=== PATIENT | female | born 1990 | race American Indian/Alaskan Native ===

== ENCOUNTER 2019-12-03 18:04 | Emergency (ER) | payer MEDICAID ==
[2019-12-03] MEDS ORDERED: cefTRIAXone/NS 1 GM/50 ML 1 GM/50 ML BAG IV ONE (21:09)
[2019-12-03] MEDS ORDERED: SULFAMETHOXAZOLE/TRIMETHOPRIM 800/160MG DS TAB PO ONE (21:09)
[2019-12-03] MEDS ORDERED: CLINDAMYCIN 300 MG CAP PO ONE (21:09)
[2019-12-03] MEDS ORDERED: LIDOCAINE-MPF (1%) 10 MG/1 ML VIAL 5 ML INFILTRATI ONE ×2 (21:10→21:12)
[2019-12-03] MEDS ORDERED: ONDANSETRON 4 MG ODT TAB PO ONE ×2 (21:11→21:59)
[2019-12-03] MEDS ORDERED: ACETAMINOPHEN 500 MG TAB PO ONE (21:11)
[2019-12-03 21:31] LABS: HCG Qualitative,Urine Negative (Negative)
[2019-12-03 21:32] LABS: Bacteria,Urine 1+ /HPF (Negative); Bilirubin,Urine NEG (Negative); Blood,Urine LG (Negative); Color,Urine Yellow (Yellow); Mucus,Urine FEW /HPF; Protein,Urine <15 mg/dL mg/dL (Negative); Urobilinogen,Urine < 2.0 mg/dL (<2.0)
[2019-12-03] MEDS ORDERED: metroNIDAZOLE 500 MG TAB PO ONE (21:59)
[2019-12-03 22:17] VITALS: BP 123/82
--- NOTE | 2019-12-03 22:24 | Emergency Department Report ---
ED General Adult HPI - General Chief complaint: Urogenital-Female Stated complaint: LOWER BACK PAIN/DISCHARGE/BOIL Source: patient Mode of arrival: Ambulatory Limitations: No Limitations - History of Present Illness Initial comments: Patient is a A0 29-year-old -[place] female with no past medical history who presents to the ED with complaint of acute onset persistent thick yellowish-green malodorous vaginal discharge, dysuria, urinary frequency and urgency, and painful swollen erythematous maculopapular rash on right gluteal cleft for 2 weeks. Patient states that the painful rash has worsened in the last 2 days. Patient denies fever, chills, nausea, vomiting, dizziness, syncope, chest pain, shortness of breath, cough, abdominal pain, diarrhea, vaginal bleeding or low back pain. MD Complaint: Vaginal discharge; Painful swollen right gluteal cleft rash; dysuria -: Sudden, week(s) (2) Location: genitals, buttocks (right) Radiation: non-radiation Severity scale (0 -10): 7 Quality: aching, sharp Consistency: constant Improves with: none Worsens with: movement Associated Symptoms: denies other symptoms, rash (Swollen erythematous maculopapular rash on the right gluteal cleft). denies: confusion, chest pain, cough, diaphoresis, fever/chills, headaches, malaise, nausea/vomiting, seizure, shortness of breath, syncope, weakness, other - Related Data Previous Rx's Medication Instructions Recorded Last Taken Type Doxycycline Hyclate 100 mg PO Q12H #20 tablet. 12/03/19 Unknown Rx Fluconazole (Nf) [Diflucan TAB] 150 mg PO ONCE #1 tablet 12/03/19 Unknown Rx Ibuprofen [Motrin] 800 mg PO Q8HR PRN #30 tablet 12/03/19 Unknown Rx Ondansetron [Zofran Odt] 4 mg PO Q6HR PRN #15 tab.rapdis 12/03/19 Unknown Rx Sulfamethoxazole/Trimethoprim 1 each PO Q12H #20 tablet 12/03/19 Unknown Rx [Bactrim DS TAB] metroNIDAZOLE [Flagyl] 500 mg PO Q12HR #14 tab 12/03/19 Unknown Rx Allergies Allergy/AdvReac Type Severity Reaction Status Date / Time No Known Allergies Allergy Unverified 12/03/19 18:25 ED Review of Systems ROS: Stated complaint: LOWER BACK PAIN/DISCHARGE/BOIL Other details as noted in HPI Constitutional: denies: chills, fever Eyes: denies: eye pain, eye discharge, vision change ENT: denies: ear pain, throat pain Respiratory: denies: cough, shortness of breath, wheezing Cardiovascular: denies: chest pain, palpitations Endocrine: no symptoms reported Gastrointestinal: denies: abdominal pain, nausea, diarrhea Genitourinary: urgency, dysuria, frequency, discharge Musculoskeletal: denies: back pain, joint swelling Skin: rash (Swollen erythematous maculopapular rash on right gluteal cleft with pain), change in color. denies: lesions Neurological: denies: headache, weakness, paresthesias Psychiatric: denies: anxiety, depression Hematological/Lymphatic: denies: easy bleeding, easy bruising ED Past Medical Hx - Past Medical History Previous Medical History?: No - Surgical History Past Surgical History?: No - Social History Smoking Status: Current Every Day Smoker Substance Use Type: Alcohol, Marijuana - Medications Home Medications: Home Medications Medication Instructions Recorded Confirmed Last Taken Type Doxycycline Hyclate 100 mg PO Q12H #20 tablet.dr 12/03/19 Unknown Rx Fluconazole (Nf) [Diflucan TAB] 150 mg PO ONCE #1 tablet 12/03/19 Unknown Rx Ibuprofen [Motrin] 800 mg PO Q8HR PRN #30 tablet 12/03/19 Unknown Rx Ondansetron [Zofran Odt] 4 mg PO Q6HR PRN #15 tab.rapdis 12/03/19 Unknown Rx Sulfamethoxazole/Trimethoprim 1 each PO Q12H #20 tablet 12/03/19 Unknown Rx [Bactrim DS TAB] metroNIDAZOLE [Flagyl] 500 mg PO Q12HR #14 tab 12/03/19 Unknown Rx ED Physical Exam - General Limitations: No Limitations General appearance: alert, in no apparent distress - Head Head exam: Present: atraumatic, normocephalic, normal inspection - Eye Eye exam: Present: normal appearance, PERRL, EOMI Pupils: Present: normal accommodation - ENT ENT exam: Present: normal exam, normal orophraynx, mucous membranes moist, TM's normal bilaterally, normal external ear exam - Neck Neck exam: Present: normal inspection, full ROM - Respiratory Respiratory exam: Present: normal lung sounds bilaterally. Absent: respiratory distress, wheezes, rales, rhonchi, chest wall tenderness, accessory muscle use, decreased breath sounds - Cardiovascular Cardiovascular Exam: Present: regular rate, normal rhythm, normal heart sounds. Absent: systolic murmur, diastolic murmur, rubs, gallop - GI/Abdominal GI/Abdominal exam: Present: soft, normal bowel sounds. Absent: tenderness, guarding, hyperactive bowel sounds - External exam: Present: normal external exam Speculum exam: Present: vaginal discharge (Greenish-yellow malodorous discharge), cervical discharge (Greenish-yellow malodorous discharge) Bi-manual exam: Present: normal bi-manual exam, other (Female RN press reader Ms. Rousseau present during the pelvic exam) - Extremities Exam Extremities exam: Present: normal inspection, full ROM, normal capillary refill - Back Exam Back exam: Present: normal inspection, full ROM. Absent: tenderness, muscle spasm, paraspinal tenderness, vertebral tenderness - Neurological Exam Neurological exam: Present: alert, oriented X3, CN II-XII intact, normal gait, reflexes normal - Psychiatric Psychiatric exam: Present: normal affect, normal mood - Skin Skin exam: Present: warm, dry, intact, normal color, rash (Swollen fluctuant severely tender erythematous maculopapular rash on right gluteal cleft), erythema ED Course Vital Signs 12/03/19 12/03/19 12/03/19 18:25 19:00 22:16 Temperature 96.0 F L 96.0 F L 98.7 F Pulse Rate 65 65 98 H Respiratory 18 Rate Blood Pressure 151/90 151/90 Blood Pressure 123/82 [Right] O2 Sat by Pulse 100 100 98 Oximetry - I & D Right Buttocks Type of Procedure: Simple Site: Right gluteal cleft Blade Size: 11 I & D Procedure: betadine prep, sterile drapes applied, sterile dressing applied, gauze wick placed Progress: The area was cleaned and sterilized with Betadine solution. 5 cc of 1% lidocaine was injected around the area for local anesthesia. When anesthesia was fully achieved, an incision was made with a #11 scalpel blade and the wound cleaned and debrided thoroughly. Hemostat was inserted into the wound to break up all of loculations. Quarter inch iodoform gauze was used to pack the wound and there after the wound was dressed appropriately with 4 x 4 gauze and Tegaderm. Patient tolerated the procedure well. Patient was thereafter discharged home on medications including oral antibiotics and pain medications and advised to return to the ED in 2 days for wound recheck and packing removal. ED Medical Decision Making - Medical Decision Making This is a A0 29-year-old -[place] female with no past medical history who presents to the ED with complaint of acute onset persistent thick yellowish-green malodorous vaginal discharge, dysuria, urinary frequency and urgency, and painful swollen erythematous maculopapular rash on right gluteal cleft for 2 weeks. Patient states that the painful rash has worsened in the last 2 days. In the ED, patient is alert and oriented x3 and is not in distress. Urinalysis shows significant urinary tract infection. The wet prep was positive for Gardnerella vaginalis and many trichomonas. Patient was treated in the ED with Rocephin 1 g intramuscular injection, also treated for pain as well as treated for trichomonas with Flagyl 2 g p.o. x1. The right gluteal cleft abscess was drained per protocol and the patient tolerated the procedure well. Patient was discharged home on pain medications, antibiotics and antiemetics and was advised to follow-up with her primary care physician in 7 to 10 days for reevaluation. Patient was also advised to return to the ED in 2 days for wound recheck and packing removal. Patient was otherwise advised to return to the ED immediately if symptoms get worse. - Differential Diagnosis Cellulitis; abscess; UTI; Trichomonas; Bacterial vaginosis; STD Critical care attestation.: If time is entered above; I have spent that time in minutes in the direct care of this critically ill patient, excluding procedure time. ED Disposition Clinical Impression: Cellulitis and abscess of buttock, Acute urinary tract infection, Trichomonas infection, STD (sexually transmitted disease), Bacterial vaginosis Disposition: DC-01 TO HOME OR SELFCARE Is pt being admited?: No Does the pt Need Aspirin: No Condition: Stable Instructions: Bacterial Vaginosis (ED), Sexually Transmitted Diseases (ED), Trichomoniasis (ED), Urinary Tract Infection in Women (ED), Cellulitis (ED), Abscess (ED) Additional Instructions: Take medication with food, drink plenty of fluids and follow-up at the [facility] for further tests including HIV. Ensure that your sexual partner gets treated at the [facility] as well for STD. Note that we do not treat STDs in the ED. Observe safe sexual practices. Return to the ED immediately if symptoms get worse. Otherwise return to the ED in 2 days for wound recheck and packing removal. Prescriptions: Sulfamethoxazole/Trimethoprim [Bactrim DS TAB] 1 each PO Q12H #20 tablet Fluconazole (Nf) [Diflucan TAB] 150 mg PO ONCE #1 tablet Doxycycline Hyclate 100 mg PO Q12H #20 tablet. metroNIDAZOLE [Flagyl] 500 mg PO Q12HR #14 tab Ibuprofen [Motrin] 800 mg PO Q8HR PRN #30 tablet PRN Reason: Pain , Severe (7-10) Ondansetron [Zofran Odt] 4 mg PO Q6HR PRN #15 tab.rapdis PRN Reason: Nausea Referrals: PRIMARY CARE, [Primary Care Provider] - 3-[address] [facility] [Outside] - 3-5 Days [facility] [Outside] - 3-5 Days Forms: STI Treatment and Prevention Time of Disposition: 22:27 Print Language: [id number]
== END 2019-12-03 22:48 | disposition home or self-care (01) ==
LOC: ED 18:04
DX: N76.0 Acute vaginitis (principal); B96.89 Other specified bacterial agents as the cause of diseases classified elsewhere; N39.0 Urinary tract infection, site not specified; L03.317 Cellulitis of buttock
CPT/HCPCS: 81001; 81025; 87086; 87210; 87591; 99284; J0696; Q0162